=== PATIENT | female | born 1980 | race Caucasian/White ===

== ENCOUNTER 2019-07-02 23:25 | Emergency (ER) | payer OTHER ==
[2019-07-02 23:38] VITALS: BMI 42.5
[2019-07-03] MEDS ORDERED: SODIUM CHLORIDE 1,000 ML IV STA (00:26)
[2019-07-03] MEDS ORDERED: LORazepam 2 MG/ML SDV VIAL ONE (00:35)
--- NOTE | 2019-07-03 00:45 | PDOC ---
History of Present Illness - General Chief Complaint: Palpitations Stated Complaint: PALPITATIONS Time Seen by Provider: 07/03/19 00:01 History Source: Patient Exam Limitations: No Limitations - History of Present Illness Initial Comments: 07/03/19 00:22 39 yo female no sig medical hx, cocaine and marijuana abuser presents to the ED for feelings of passing out, palpitations and dizziness after using cocaine, wine and marijuana. Pt states around 9 pm she inhaled 1 gram of cocaine and soon after smoked marijuana. Around 10 pm noted palpitations and presyncope with dizziness. Denies family hx or cardiac disease, recent travel, recent illness, chest pain, back pain, abdominal pain, F/C/N/V, changes in bowel or bladder habits. Denies SI/HI, never been to rehab Past History - Past Medical History Allergies/Adverse Reactions: Allergies Allergy/AdvReac Type Severity Reaction Status Date / Time No Known Allergies Allergy Verified 07/02/19 23:38 Home Medications: Ambulatory Orders Pantoprazole Sodium [Protonix -] 40 mg PO DAILY #30 tablet.ec 11/22/14 Sulfamethoxazole/Trimethoprim [Bactrim Ds -] 1 tab PO BID #6 tablet 05/02/18 Anemia: No Asthma: No Cancer: No Cardiac Disorders: No CVA: No COPD: No CHF: No DVT: No Dementia: No Diabetes: No GI Disorders: Yes (CHANGE IN BM; DIARRHEA/CONSTIPATION; EPIGATRIC PAIN; NAUSEA/ VOM;ESO ULCERS;) Disorders: No HTN: No Hypercholesterolemia: No Liver Disease: No Seizures: No Thyroid Disease: No - Reproductive History Cervical CA: No Dysfunctional Uterine Bleeding: No Ectopic : No Endometrial CA: No Polycystic Ovaries: No Spontaneous : 1 - Immunization History Immunization Up to Date: Yes - Psycho Social/Smoking Cessation Hx Smoking Status: No Smoking History: Current some day smoker Years of Tobacco Use: 15 Have you smoked in the past 12 months: Yes Number of Cigarettes Smoked Daily: 5 If you are a former smoker, when did you quit?: 5mos ago Information on smoking cessation initiated: Yes 'Breaking Loose' booklet given: 02/20/12 Hx Alcohol Use: Yes (occ) Drug/Substance Use Hx: Yes Substance Use Type: None Hx Substance Use Treatment: No Review of Systems - Review of Systems Constitutional: No: Chills, Fever HEENTM: No: Blurred Vision Respiratory: No: Shortness of Breath Cardiac (ROS): Yes: Chest Pain, Palpitations ABD/GI: No: Diarrhea, Nausea, Vomiting : No: Burning, Dysuria Musculoskeletal: No: Back Pain Neurological: Yes: Dizziness. No: Headache, Numbness, Tingling *Physical Exam - Vital Signs Last Vital Signs Temp Pulse Resp BP Pulse Ox 98.9 F 130 H 20 172/104 H 99 07/02/19 23:35 07/02/19 23:35 07/02/19 23:35 07/02/19 23:35 07/02/19 23:35 - Physical Exam General Appearance: Yes: Nourished, Appropriately Dressed. No: Apparent Distress HEENT: positive: EOMI, YANG, Hearing Grossly Normal Neck: positive: Supple. negative: Rigid Respiratory/Chest: positive: Lungs Clear, Normal Breath Sounds. negative: Accessory Muscle Use, Rapid RR, Crackles, Rales, Rhonchi, Stridor, Wheezing Vascular Pulses: Dorsalis-Pedis (R): 4+, Doralis-Pedis (L): 4+ Gastrointestinal/Abdominal: positive: Flat, Soft. negative: Pulsatile Mass, Distended, Guarding, Rebound, Tenderness Musculoskeletal: negative: CVA Tenderness Extremity: positive: Normal Capillary Refill, Normal Inspection Integumentary: positive: Normal Color, Dry, Warm Neurologic: positive: answerer II-XII NML intact, Fully Oriented, Alert, Normal Mood/ Affect, Normal Response, Motor Strength 5/5. negative: Facial Droop, Numbness, Sensory Deficit, Confused, Disoriented ED Treatment Course - LABORATORY CBC & Chemistry Diagram: 07/03/19 00:35 07/03/19 00:35 Medical Decision Making - Medical Decision Making 07/03/19 02:34 39 yo female no sig medical hx, cocaine and marijuana abuser presents to the ED for feelings of passing out, palpitations and dizziness after using cocaine, wine and marijuana. Pt states around 9 pm she inhaled 1 gram of cocaine and soon after smoked marijuana. Around 10 pm noted palpitations and presyncope with dizziness. Denies family hx or cardiac disease, recent travel, recent illness, chest pain, back pain, abdominal pain, F/C/N/V, changes in bowel or bladder habits. Denies SI/HI, never been to rehab vitals show elevated HR and BP, will reassess Pt given 2 mg IV ativan given for acute cocaine intox with elevated bp, elevated HR and palpitations EKG sinus tach without ischemic changes Labs including trops neg pt denies CP, admits improvement after ativan. Pt does not require CXR after sig improvement in symptoms and vitals reassessed vitals shows sig improvement \ pt safe for DC home with information on substance abuse, cardiology f/u and strict rreturn precautions Discharge - Discharge Information Problems reviewed: Yes Clinical Impression/Diagnosis: Palpitations Condition: Stable Disposition: HOME - Follow up/Referral Referrals: Dallin Tirado MD [Staff Physician] - - Patient Discharge Instructions Patient Printed Discharge Instructions: DI for Cocaine Use Disorder, DI for Palpitations Additional Instructions: Please see your Primary Doctor within the next 48 hours and see the Material Inspector referred to you. Stop using illicit drugs such as cocaine, this can negatively affect your heart. The ER is open every hour and every day of the year, please return for any concerns. Return to the ER for chest pain, difficulty breathing, loss of consciousness, high fevers. Thank you - Post Discharge Activity
[2019-07-03 00:48] LABS: BASO % 0.7 % (0-2.0); EOS % 0.3 % (0-4.5); HEMATOCRIT 41.4 % (32.4-45.2); HEMOGLOBIN 13.7 GM/dL (10.7-15.3); LYMPH % 14.7 % (8-40); MCH 30.6 pg (25.7-33.7); MCHC 33.2 g/dl (32.0-36.0); MEAN CELL VOLUME 92.3 fl (80-96); MEAN PLT VOLUME 9.6 fl (7.5-11.1); MONO % 7.2 % (3.8-10.2); NEUT % 77.1 % (42.8-82.8); PLATELET COUNT 208 K/MM3 (134-434); RBC 4.48 M/mm3 (3.60-5.2); RDW 15.2 % (11.6-15.6); WHITE BLOOD COUNT 6.9 K/mm3 (4.0-10.0)
--- NOTE | 2019-07-03 00:55 | PDOC ---
Attending Attestation - Resident Resident Name: Ryder Hull - ED Attending Attestation I have performed the following: I have examined & evaluated the patient, The case was reviewed & discussed with the resident, I agree w/resident's findings & plan, Exceptions are as noted - HPI HPI: 07/03/19 00:47 39 F with no PMH presents to ED with palpitations and lightheadedness after using cocaine, ETOH, and marijuana. Pt notes she snorted a gram of cocaine at 9PM. Subsequently smoked marijuana and drank wine. At 10, pt began to feel palpitations and lightheaded. Denies LOC. Denies CP/SOB. - Physicial Exam PE: 07/03/19 00:49 "GENERAL: Awake, alert, and fully oriented, in no acute distress. HEAD: No signs of trauma EYES: PERRLA, EOMI, sclera anicteric, conjunctiva clear ENT: Auricles normal inspection, hearing grossly normal, nares patent, oropharynx clear without exudates. Moist mucosa NECK: Nontender, no stepoffs, Normal ROM, supple, no lymphadenopathy, JVD, or masses LUNGS: Breath sounds equal, clear to auscultation bilaterally. No wheezes, and no crackles HEART: Regular rate and rhythm, normal S1 and S2, no murmurs, rubs or gallops ABDOMEN: Soft, nontender, normoactive bowel sounds. No guarding, no rebound. No masses EXTREMITIES: Normal range of motion, no edema. No clubbing or cyanosis. No cords, erythema, or tenderness NEUROLOGICAL: Cranial nerves II through XII intact. 5/5 strength and sensation in all extremities, Normal speech, normal gait, normal cerebellar function SKIN: Warm, Dry, normal turgor, no rashes or lesions noted. - Medical Decision Making 07/03/19 00:55 39 F with palpitations, lightheadedness after cocaine use. EKG sinus tachycardia. - Labs, TSH, trop - IVF, ativan - Monitor in ED 07/03/19 02:02 Labs wnl Vitals now normalized Pt reassessed - now feels much better. Pt is well appearing, with normal vitals. Clinically stable for DC at this time. I discussed the physical exam findings, ancillary test results and final diagnoses with the patient. I answered all of the patient's questions. The patient was satisfied with the care received and felt comfortable with the discharge plan and treatment plan. The patient agrees to follow up with the primary care physician within 24-72 hours.
[2019-07-03 01:15] LABS: ALBUMIN 3.8 g/dl (3.4-5.0); BILIRUBIN,TOTAL 0.3 mg/dL (0.2-1); BLOOD UREA NITROGEN 9.1 mg/dL (7-18); CALCIUM 9.1 mg/dL (8.5-10.1); CREATININE 0.7 mg/dL (0.55-1.3); TOT PROT 7.5 g/dl (6.4-8.2)
[2019-07-03 02:01] VITALS: PULSE 95; TEMP 98.2
[2019-07-03 03:02] VITALS: BP 145/95
--- NOTE | 2019-07-03 12:53 | EKG ---
Test Reason : Blood Pressure : / mmHG Vent. Rate : 125 BPM Atrial Rate : 125 BPM P-R Int : 138 ms QRS Dur : 088 ms QT Int : 332 ms P-R-T Axes : 044 034 014 degrees QTc Int : 479 ms SINUS TACHYCARDIA POSSIBLE LEFT ATRIAL ENLARGEMENT NONSPECIFIC ST ABNORMALITY ABNORMAL ECG WHEN COMPARED WITH ECG OF 30-APR-2018 18:37, VENT. RATE HAS INCREASED BY [address] NOW DEPRESSED IN INFERIOR LEADS ST NOW DEPRESSED IN LATERAL LEADS Confirmed by COLLEEN PAZ MD ([id number]) on 07/03/2019 12:52:39 PM Referred By: Confirmed By:COLLEEN PAZ MD
== END 2019-07-03 03:02 | disposition home or self-care (01) ==
LOC: JER 23:25
PROC: 3E0337Z Introduction of Electrolytic and Water Balance Substance into Peripheral Vein, Percutaneous Approach (ICD-10-PCS; principal; 2019-07-02)
PROC: 3E033NZ Introduction of Analgesics, Hypnotics, Sedatives into Peripheral Vein, Percutaneous Approach (ICD-10-PCS; 2019-07-02)
DX: R00.2 Palpitations (principal); F14.10 Cocaine abuse, uncomplicated; F12.10 Cannabis abuse, uncomplicated; Z87.19 Personal history of other diseases of the digestive system
CPT/HCPCS: 36415; 80053; 82550; 84443; 84484; 85025; 93005; 93010; 99284-25; J7030

== ENCOUNTER 2020-06-24 07:51 | Emergency (ER) | payer OTHER ==
[2020-06-24 07:59] VITALS: TEMP 98.1; BMI 39.5
--- OUTSIDE RECORDS SUMMARY | 2020-06-24 08:16 | XMS ---
:1980 Author Organization [facility] Care Team Providers Name Role Phone FANI Unavailable Unavailable Tahir Garcia Unavailable Unavailable LJ CARBALLO Unavailable Unavailable Re-disclosure Warning The records that you are about to access may contain information from federally- assisted alcohol or drug abuse programs. If such information is present, then the following federally mandated warning applies: This information has been disclosed to you from records protected by federal confidentiality rules (42 CFR part 2). The federal rules prohibit you from making any further disclosure of this information unless further disclosure is expressly permitted by the written consent of the person to whom it pertains or as otherwise permitted by 42 CFR part 2. A general authorization for the release of medical or other information is NOT sufficient for this purpose. The Federal rules restrict any use of the information to criminally investigate or prosecute any alcohol or drug abuse patient.The records that you are about to access may contain highly sensitive health information, the redisclosure of which is protected by Article 27-F of the [facility] Public Health law. If you continue you may haveaccess to information: Regarding HIV / AIDS; Provided by facilities licensed or operated by the [facility] Office of Mental Health; or Provided by the [facility] Office for People With Developmental Disabilities. If such information is present, then the following [facility] mandated warning applies: This information has been disclosed to you from confidential records which are protected by state law. State law prohibits you from making any further disclosure of this information without the specific written consent of the person to whom it pertains, or as otherwise permitted by law. Any unauthorized further disclosure in violation of state law may result in a fine or mcc sentence or both. A general authorization for the release of medical or other information is NOT sufficient authorization for further disclosure. Allergies and Adverse Reactions Type Description Substance Reaction Status Data Source(s ) Drug allergy No Known Allergies No Known [facility] Allergies [facility] Food allergy No Known Food No Known Food [facility] Allergies Allergies [facility] Drug allergy No Known Drug No Known Drug [facility] Allergies Allergies [facility] Encounters Encounter Providers Location Date Indications Data Source(s ) Outpatient Attender: KAIT 02/07/2020 Z01.84 [facility] LJ BeckAttender: 01:43:00 PM [facility] KARAdmitter: [facility] [employer] LJ CARBALLOReferrer: LJ CARBALLO Z01.84 Outpatient Attender: KAIT 02/07/2020 09:58:00 Z01.84 [facility] LJ BeckAdmitter: AM [facility] LJ CARBALLO [employer] harjinder BeckReferrer: LJ CARBALLO Z.84 Outpatient Attender: Tahir 04/12/2019 10:40:00 AM [facility] (Bjorn GarciaReferrer: Tahir Garcia [facility]) Outpatient Attender: Tahir 03/27/2019 12:00:00 PM [facility] (Polinatxalireza GarciaReferrer: Tahir Garcia [facility]) Outpatient Attender: Tahir Garcia 03/21/2019 10:14:00 AM [facility] (Polinatxalireza [facility]) Insurance Providers Payer name Policy type Policy ID Covered Covered democrat's Policy P pat / Coverage democrat ID relationship to Zavala Inf ormation type zavala UMR [id number] SP [id number] [facility] UMR [id number] 1 [id number] [facility] Problems, Conditions, and Diagnoses Code Display Name Description Problem Type Effective Dates Data Source(s) Z01.84 Encounter for ENCOUNTER FOR Diagnosis 02/07/2020 [facility] antibody response ANTIBODY RESPONSE 01:43:00 PM [facility] examination EXAMINATION Care Corpora tion Z34.90 Encounter for Encntr for Diagnosis 03/27/2019 [facility] supervision of suprvsn of normal 12:00:00 PM ED T ([facility] normal , , unsp, M edical - Mt unspecified, unsp trimester [facility]) trimester Z64.0 Problems related Unwanted Diagnosis 03/27/2019 [facility]EXT[facility] to unwanted with 12:00:00 PM EDT ([facility] plans for Medical - [place] termination [facility]) Surgeries/Procedures Procedure Description Date Indications Data Source(s) Misoprostol, oral, Misoprostol, oral, 03/27/2019 NEX TGEN ([facility] 200 mcg 200 mcg 12:00:00 AM [facility]) Mifepristone, oral, Mifepristone, oral, 03/27/2019 N EXTGEN ([facility] 200 mg 200 mg 12:00:00 AM [facility]) TRANSVAGINAL US TRANSVAGINAL US 03/27/2019 NEXTGEN ( [facility] OBSTETRIC OBSTETRIC 12:00:00 AM [facility]) OFFICE/OUTPATIENT OFFICE/OUTPATIENT 03/27/2019 NEXTG EN ([facility] VISIT EST VISIT EST 12:00:00 AM [facility]) Results ID Date Data Source [id number] 06/10/2020 02:49:00 PM EDT [facility] Name Value Range Interpretation Code Description Data Julia rce(s) Supporting Document(s ) SARS-COV-2 [facility]P [facility]ostics QL NISHI+PROBE This lab was ordered by GABY escudero nd reported by Fundera HALEY. ID Date Data Source [id number] 03/27/2020 02:15:00 PM EDT [facility] Name Value Range Interpretation Code Description Data Julia rce(s) Supporting Document(s ) SARS-COV-2 [facility] This lab was ordered by [employer] [facility] and reported by [facility] [facility]. ID Date Data Source [id number] 01/15/2020 12:31:00 PM EDT [facility] Name Value Range Interpretation Code Description Data Julia rce(s) Supporting Document(s ) SARS-COV-2 [facility] This lab was ordered by [facility] [employer] [facility] and reported by [facility]. ID Date Data Source [id number] 01/01/2020 11:14:00 AM EDT [facility] Name Value Range Interpretation Code Description Data Julia rce(s) Supporting Document(s ) SARS-COV-2 [facility] This lab was ordered by [employer] and reported by [email or web address]. Procedure
[2020-06-24] MEDS ORDERED: SODIUM CHLORIDE 1,000 ML IV STA (08:19)
[2020-06-24] MEDS ORDERED: ONDANSETRON 4 MG/2 ML VIAL IVPUSH ONE (08:20)
[2020-06-24] MEDS ORDERED: FAMOTIDINE 20 MG/50 ML IVPB 20 MG/50 ML MG IVPB ONE ×2 (08:20→10:02)
--- NOTE | 2020-06-24 08:26 | PDOC ---
History of Present Illness - General Chief Complaint: Vomiting/Diarrhea Stated Complaint: VOMITING Time Seen by Provider: 06/24/20 08:20 - History of Present Illness Initial Comments: 39 YOF h/o cholelithiasis presents with abdominal pain, nausea and vomiting since 2 days. Patient reports pain is in RUQ, worse with eating, vomited 8 times in two days. Was dxd with cholelithiasis in 2018, followed up with surgery, was recd for cholecystectomy but decided against going through with surgery. Has had episodes of N/V and pain over last two years. Attempted to control with meds. Here today for worsening symptoms. Open to surgery this time. Denies CP, SOB, fever, recent sick contacts or travel. Constitutional: No Weight Change, No Fever, No Chills, No Night Sweats, No Fatigue, No Malaise ENT/Mouth: No Hearing Changes, No Ear Pain, No Nasal Congestion, No Sinus Pain, No Hoarseness, No sore throat, No Rhinorrhea, No Swallowing Difficulty Eyes: No Eye Pain, No Swelling, No Redness, No Foreign Body, No Discharge, No Vision Changes Cardiovascular: No Chest Pain, No SOB, No PND, No Dyspnea on Exertion, No Orthopnea, No Claudication, No Edema, No Palpitations Respiratory: No Cough, No Sputum, No Wheezing, No Smoke Exposure, No Dyspnea Gastrointestinal: + Nausea, + Vomiting, No Diarrhea, No Constipation, + Pain, No Heartburn, No Anorexia, No Dysphagia, No Hematochezia, No Melena, No Flatulence, No Jaundice Genitourinary: No Dysmenorrhea, No DUB, No Dyspareunia, No Dysuria, No Urinary Frequency, No Hematuria, No Urinary Incontinence, No Urgency, No Flank Pain, No Urinary Flow Changes, No Hesitancy Musculoskeletal: No Arthralgias, No Myalgias, No Joint Swelling, No Joint Stiffness, No Back Pain, No Neck Pain, No Injury History Skin: No Skin Lesions, No Pruritis, No Hair Changes, No Breast/Skin Changes, No Nipple Discharge Neuro: No Weakness, No Numbness, No Paresthesias, No Loss of Consciousness, No Syncope, No Dizziness, No Headache, No Coordination Changes, No Recent Falls Psych: No Anxiety/Panic, No Depression, No Insomnia, No Personality Changes, No Delusions, No Rumination, No SI/HI/AH/VH, No Social Issues, No Memory Changes, No Violence/Abuse Hx., No Eating Concerns Heme/Lymph: No Bruising, No Bleeding, No Transfusions History, No Lymphadenopathy Endocrine: No Polyuria, No Polydipsia, No Temperature Intolerance Past History - Medical History Allergies/Adverse Reactions: Allergies Allergy/AdvReac Type Severity Reaction Status Date / Time No Known Allergies Allergy Verified 06/24/20 07:54 Home Medications: Ambulatory Orders Pantoprazole Sodium [Protonix -] 40 mg PO DAILY #30 tablet.ec 11/22/14 Sulfamethoxazole/Trimethoprim [Bactrim Ds -] 1 tab PO BID #6 tablet 05/02/18 Anemia: No Asthma: No Cancer: No Cardiac Disorders: No CVA: No COPD: No CHF: No DVT: No Dementia: No Diabetes: No GI Disorders: Yes (CHANGE IN BM; DIARRHEA/CONSTIPATION; EPIGATRIC PAIN; NAUSEA/VOM;ESO ULCERS;) Disorders: No HTN: No Hypercholesterolemia: No Liver Disease: No Seizures: No Thyroid Disease: No - Reproductive History Is Patient Now?: No Cervical CA: No Dysfunctional Uterine Bleeding: No Ectopic : No Endometrial CA: No Polycystic Ovaries: No Spontaneous : 1 - Immunization History Immunization Up to Date: Yes - Psycho-Social/Smoking History Smoking Status: No Smoking History: Never smoked Years of Tobacco Use: 15 Have you smoked in the past 12 months: No Number of Cigarettes Smoked Daily: 5 If you are a former smoker, when did you quit?: 5mos ago 'Breaking Loose' booklet given: 02/20/12 - Substance Abuse Hx (Audit-C & DAST Scrn) How often the patient has a drink containing alcohol: Never Score: In Men: 4 or > Positive; In Women: 3 or > Positive: 0 Screen Result (Pos requires Nsg. Audit-10AR): Negative In the last yr the pt used illegal drug/Rx for NonMed reason: No Score: Yes response is considered Positive: 0 Screen Result (Positive result requires Nsg. DAST-10): Negative *Physical Exam - Vital Signs Last Vital Signs Temp Pulse Resp BP Pulse Ox 98.1 F 94 H 18 154/102 H 100 06/24/20 07:54 06/24/20 07:54 06/24/20 07:54 06/24/20 07:54 06/24/20 07:54 - Physical Exam General Appearance: Yes: Nourished, Moderate Distress HEENT: positive: EOMI, YANG, Normal ENT Inspection, Normal Voice, Symmetrical, TMs Normal, Pharynx Normal Neck: positive: Trachea midline, Normal Thyroid Respiratory/Chest: positive: Lungs Clear, Normal Breath Sounds Cardiovascular: positive: Regular Rhythm, Regular Rate, S1, S2 Gastrointestinal/Abdominal: positive: Tender, Flat, Soft, Other (+ middleton) Musculoskeletal: positive: Normal Inspection Extremity: positive: Normal Capillary Refill, Normal Inspection ED Treatment Course - LABORATORY CBC & Chemistry Diagram: 06/24/20 09:11 06/24/20 09:06 Medical Decision Making - Medical Decision Making 39 YOF h/o cholelithiasis presents with RUQ pain, V/D - vitals wnl - exam + middleton - h/o cocaine abuse - CBC, CMP, lipase, RUQ US, EKG, troponin, CXR, UA, utox reassess: - labs wnl - US shows cholelithiaisis and small echogenic foci in liver which will need follow up - patient does not opt for surgery at this time, will dc to home with follow up 06/24/20 10:42 06/24/20 11:01 Discharge - Discharge Information Problems reviewed: Yes Clinical Impression/Diagnosis: Cholelithiasis Condition: Good - Admission No - Follow up/Referral Referrals: Alko Salinas MD [Primary Care Provider] - Scar Heart MD [Staff Physician] - - Patient Discharge Instructions Patient Printed Discharge Instructions: Gallstones, DI for Gallstones Additional Instructions: You were seen in the ER for abdominal pain, nausea, and vomiting. You received labs and ultrasound. Your labs were unremarkable however your ultrasound revealed the presence of one or more gallstones in your gall bladder, there is also a small focus in your liver of unclear significant. You decided that you would not like surgery to remove your gall bladder at this time. You were considered medically stable and safe to return home. Please follow up with your primary care doctor regarding your ultrasound findings, both the gall stone and the liver focus. Additionally please follow up with Dr. Heart of general surgery for your gall stone. Please follow up with both of these doctors within one week of leaving the ER. Please return to the ER if you experience fever, worsening of your pain, nausea or vomiting, in ability to tolerate liquids by mouth, change in mental status, yellowing of the skin, or blood in your vomit or stool. Additionally if you experience chest pain, shortness of breath, please return to the ER. When you return home we recommend you avoid fatty or heavy foods as this can worsen your symptoms. - Post Discharge Activity
[2020-06-24 09:48] LABS: BASO % 0.4 % (0-2.0); EOS % 0.4 % (0-4.5); HEMATOCRIT 42.9 % (32.4-45.2); HEMOGLOBIN 14.6 GM/dL (10.7-15.3); LYMPH % 18.6 % (8-40); MCH 31.2 pg (25.7-33.7); MEAN CELL VOLUME 91.8 fl (80-96); MEAN PLT VOLUME 9.8 fl (7.5-11.1); MONO % 4.8 % (3.8-10.2); NEUT % 75.8 % (42.8-82.8); PLATELET COUNT 218 K/MM3 (134-434); RBC 4.68 M/mm3 (3.60-5.2); RDW 13.9 % (11.6-15.6); WHITE BLOOD COUNT 8.3 K/mm3 (4.0-10.0)
[2020-06-24] MEDS ORDERED: PIPERACILLIN/TAZOB 3.375 GM 3.375 GM in DEXTROSE 5%-WATER - 50 ML IVPB ONE (10:06)
[2020-06-24 10:08] LABS: ALK PHOS 67 U/L (45-117); BILIRUBIN,TOTAL 0.7 mg/dL (0.2-1); BLOOD UREA NITROGEN 8.1 mg/dL (7-18); CALCIUM 9.6 mg/dL (8.5-10.1); CHLORIDE 106 mmol/L (98-107); CO2 26 mmol/L (21-32); GLUCOSE,RANDOM 101 mg/dL (74-106); LIPASE 93 U/L (73-393); POTASSIUM 3.9 mmol/L (3.5-5.1); SGOT/AST 21 U/L (15-37); TOT PROT 7.9 g/dl (6.4-8.2)
[2020-06-24 10:09] LABS: ANION GAP 7 MMOL/L (8-16); CREATININE 0.7 mg/dL (0.55-1.3); MAGNESIUM 2.1 mg/dL (1.8-2.4); SGPT/ALT 35 U/L (13-61); SODIUM 138 mmol/L (136-145)
--- NOTE | 2020-06-24 10:27 | PDOC ---
Documentation entered by Ryan Thorne SCRIBE, acting as scribe for Yobani Friedman MD. Yobani Friedman MD: This documentation has been prepared by the Mati carnes Alexis, SCRIBE, under my direction and personally reviewed by me in its entirety. I confirm that the documentation accurately reflects all work, treatment, procedures, and medical decision making performed by me. Attending Attestation - Resident Resident Name: HenriqueRiley bridges - ED Attending Attestation I have performed the following: I have examined & evaluated the patient, The case was reviewed & discussed with the resident, I agree w/resident's findings & plan, Exceptions are as noted - HPI HPI: 06/24/20 15:52 39 years old with past medical history significant for obesity and gallstones presents to the emergency department with right upper quadrant pain after eating fatty meal yesterday. Pain is moderate persistent constant no exacerbating or alleviating factors no associated fever chills vomiting or diarrhea moderate nausea as well - Physicial Exam PE: 06/24/20 15:53 Vitals: Triage Vital signs reviewed General Appearance: No acute distress, well nourished well developed, Head: Atraumatic, Cardiac: Regular rate and rhythym, no murmurs, no rubs, no gallops, Lungs: Clear to auscultation bilateral, good air movement bilaterally, Abdomen: Soft, non distended, normal bowel sounds, Mild right upper quadrant tenderness to palpation no, no rebound no guarding Extremities: Full range of motion to all extremities, no cyanosis, clubbing, or edema Skin: Warm and dry, no rashes or lesions, no rash, no petechiae Psych: Normal mood, normal affect - Medical Decision Making 06/24/20 15:53 Well-appearing no apparent distress ultrasound demonstrates cholelithiasis no evidence of acute cholecystitis No fever no white count Given multiple episodes of similar presentation discussed with patient surgical intervention At this time patient would like to continue to try management with diet. She was instructed to return to the ED for any fever chills vomiting severe uncontrollable pain otherwise she will follow-up within 1 week with surgery as an outpatient Findings, the need for follow-up and strict return instructions discussed with patient. Discharge - Discharge Information Problems reviewed: Yes Clinical Impression/Diagnosis: Cholelithiasis Qualifiers: Cholelithiasis location: gallbladder Cholecystitis presence: without cholecystitis Biliary obstruction: without biliary obstruction Qualified Code(s): K80.20 - Calculus of gallbladder without cholecystitis without obstruction Condition: Good Disposition: HOME - Follow up/Referral Referrals: Scar Heart MD [Staff Physician] - Alok Salinas MD [Primary Care Provider] - - Patient Discharge Instructions Patient Printed Discharge Instructions: Gallstones, DI for Gallstones Additional Instructions: You were seen in the ER for abdominal pain, nausea, and vomiting. You received labs and ultrasound. Your labs were unremarkable however your ultrasound revealed the presence of one or more gallstones in your gall bladder, there is also a small focus in your liver of unclear significant. You decided that you would not like surgery to remove your gall bladder at this time. You were considered medically stable and safe to return home. Please follow up with your primary care doctor regarding your ultrasound findings, both the gall stone and the liver focus. Additionally please follow up with Dr. Heart of general surgery for your gall stone. Please follow up with both of these doctors within one week of leaving the ER. Please return to the ER if you experience fever, worsening of your pain, nausea or vomiting, in ability to tolerate liquids by mouth, change in mental status, yellowing of the skin, or blood in your vomit or stool. Additionally if you experience chest pain, shortness of breath, please return to the ER. When you return home we recommend you avoid fatty or heavy foods as this can worsen your symptoms. - Post Discharge Activity
[2020-06-24] MEDS ORDERED: PIPERACILLIN/TAZOB 3.375 GM 3.375 GM/50 ML BAG IVPB ONE (10:33)
[2020-06-24 11:32] LABS: PH,URINE 5.5 (5.0-8.0); URINE APPEARANCE CLEAR; URINE BILIRUBIN NEGATIVE (NEGATIVE); URINE COLOR YELLOW; URINE GLUCOSE (UA) NEGATIVE (NEGATIVE); URINE KETONE 2+ (NEGATIVE); URINE LEUK ESTERASE NEGATIVE (NEGATIVE); URINE NITRITE NEGATIVE (NEGATIVE); URINE PROTEIN NEGATIVE (NEGATIVE)
[2020-06-24 11:53] LABS: COCAINE, UR NEGATIVE ng/ml (CUTOFF=300); METHADONE, UR NEGATIVE ng/ml (CUTOFF=300); OPIATES, URI NEGATIVE ng/ml (CUTOFF=300); PHENCYCLIDINE,URINE NEGATIVE ng/ml (CUTOFF=25); URINE AMPHETAMINES NEGATIVE ng/ml (CUTOFF=500); URINE BARBITURATES NEGATIVE ng/ml (CUTOFF=200); URINE BENZODIAZEPINES NEGATIVE ng/ml (CUTOFF=200)
[2020-06-24 12:10] VITALS: BP 142/97; PULSE 70
[2020-06-24 13:39] LABS: INR 1.09 (0.83-1.09); PROTHROMBIN TIME (PATIENT) 12.9 SEC (9.7-13.0)
[2020-06-24 13:42] LABS: ACTIVATED PTT 27.8 SECONDS (25.2-36.5)
--- NOTE | 2020-06-24 16:55 | EKG ---
Test Reason : Blood Pressure : / mmHG Vent. Rate : 057 BPM Atrial Rate : 057 BPM P-R Int : 136 ms QRS Dur : 092 ms QT Int : 462 ms P-R-T Axes : -04 020 018 degrees QTc Int : 449 ms SINUS BRADYCARDIA OTHERWISE NORMAL ECG WHEN COMPARED WITH ECG OF 02-JUL-2019 23:24, VENT. RATE HAS DECREASED BY 68 BPM Confirmed by TOMÁS KELLY MD ([id number]) on 06/24/2020 4:55:18 PM Referred By: Confirmed By:TOMÁS KELLY MD
== END 2020-06-24 12:10 | disposition home or self-care (01) ==
LOC: JER 07:51
PROC: 3E03329 Introduction of Other Anti-infective into Peripheral Vein, Percutaneous Approach (ICD-10-PCS; principal; 2020-06-24)
PROC: 3E033GC Introduction of Other Therapeutic Substance into Peripheral Vein, Percutaneous Approach (ICD-10-PCS; 2020-06-24)
PROC: 3E0337Z Introduction of Electrolytic and Water Balance Substance into Peripheral Vein, Percutaneous Approach (ICD-10-PCS; 2020-06-24)
DX: K80.20 Calculus of gallbladder without cholecystitis without obstruction (principal)
CPT/HCPCS: 36415; 71045-TC-FY; 76705-TC; 80053; 80307; 81003; 83605; 83690; 83735; 84484; 84703; 85025; 85610; 85730; 86850; 86900; 86901; 93005; 93010; 99285-25

== ENCOUNTER 2023-03-08 17:38 | Emergency (ER) | payer OTHER ==
[2023-03-08 17:52] VITALS: BP 153/84; PULSE 82; RESP 17; TEMP 98; BMI 39.5
[2023-03-08] MEDS ORDERED: KETOROLAC TROMETHAMINE 30 MG/1 ML VIAL IM ONE (18:38)
[2023-03-08] MEDS ORDERED: KETOROLAC TROMETHAMINE 30 MG/1 ML VIAL ONE (18:45)
== END 2023-03-08 19:55 | disposition home or self-care (01) ==
LOC: JER 17:38
PROC: 0HDRXZZ Extraction of Toe Nail, External Approach (ICD-10-PCS; principal; 2023-03-08)
PROC: 3E0233Z Introduction of Anti-inflammatory into Muscle, Percutaneous Approach (ICD-10-PCS; 2023-03-08)
DX: S90.212A Contusion of left great toe with damage to nail, initial encounter (principal); W25.XXXA Contact with sharp glass, initial encounter
CPT/HCPCS: 73660-TC-FY; 99284-25

== ENCOUNTER 2024-03-28 20:23 | Emergency (ER) | payer OTHER ==
[2024-03-28] MEDS: ONDANSETRON 4 MG/2 ML VIAL IVPB ONE (20:39)
[2024-03-28] MEDS: SODIUM CHLORIDE 1,000 ML IV STA ×2 (20:39→21:59)
[2024-03-28] MEDS ORDERED: ONDANSETRON 4 MG/2 ML VIAL ONE (20:42)
[2024-03-28] MEDS ORDERED: LOPERAMIDE HCL 2 MG CAPSULE ONE (20:53)
[2024-03-28] MEDS: LOPERAMIDE HCL 2 MG CAPSULE PO ONE (20:54)
[2024-03-28 20:55] LABS: HEMATOCRIT 41.2 % (32.4-45.2); HEMOGLOBIN 13.7 G/dL (10.7-15.3); MCH 30.7 pg (25.7-33.7); MCHC 33.3 g/dl (32.0-36.0); MEAN CELL VOLUME 92.2 fl (80-96); MEAN PLT VOLUME 9.5 fl (7.5-11.1); PLATELET COUNT 171.1 10^3/uL (134-434); RBC 4.47 10^6/uL (3.60-5.2); RDW 14.3 % (11.6-15.6); WHITE BLOOD COUNT 6.5 10^3/uL (4.0-10.8)
[2024-03-28 20:57] VITALS: BP 137/89; PULSE 70; RESP 16; TEMP 98.4; BMI 35.2
[2024-03-28 21:03] LABS: HCG,QUALITATIVE URINE Negative
[2024-03-28 21:04] LABS: EPITHELIAL CELLS FEW /hpf; PLATELET ESTIMATE ADEQUATE; URIC ACID CRYSTALS FEW /hpf (NONE SEEN)
[2024-03-28 21:10] LABS: CREATININE 0.6 mg/dl (0.6-1.3)
[2024-03-28 21:11] LABS: ALBUMIN 4.2 g/dl (3.4-5.0); BILIRUBIN,TOTAL 0.7 mg/dl (0.2-1); TOT PROT 6.8 g/dl (6.4-8.2)
== END 2024-03-28 22:50 | disposition home or self-care (01) ==
LOC: FER 20:23
PROC: 3E033GC Introduction of Other Therapeutic Substance into Peripheral Vein, Percutaneous Approach (ICD-10-PCS; principal; 2024-03-28)
PROC: 3E0337Z Introduction of Electrolytic and Water Balance Substance into Peripheral Vein, Percutaneous Approach (ICD-10-PCS; 2024-03-28)
PROC: 3E0337Z Introduction of Electrolytic and Water Balance Substance into Peripheral Vein, Percutaneous Approach (ICD-10-PCS; 2024-03-28)
DX: R11.2 Nausea with vomiting, unspecified (principal); K52.9 Noninfective gastroenteritis and colitis, unspecified; R10.30 Lower abdominal pain, unspecified
CPT/HCPCS: 36415; 80053; 81003; 81015; 84703; 85027; 87086; 99284-25